=== PATIENT | male | born 1985 | race Caucasian/White ===

== ENCOUNTER 2016-09-13 16:22 | Emergency (ER) | payer MEDICAID ==
[~2016-09-13] VITALS: Ht 185.4 cm; Wt 154.5 kg
[~2016-09-13 16:22] MED LIST: ABILIFY 10MG TA10 MG PO; ADIPEX-P37.5 M1 PO; AMOXICILLIN 50500 MG PO; ANTIDEPRESSANT; CEFTIN500 MG PO; CELEXA40 MG PO; CHERATUSSIN AC120 ML PO; FIORICET 325 MG1 TA1 PO; FLEXERIL 1010 MG/TAB PO; FLEXERIL5 MG PO; IMITREX 5MGNAS NS; IMITREX50 MG PO; NORCO 325 MG-51 TAB PO; NORCO 325 MG-7.1 TAB PO; PERCOCET 325 MG1 TA2 PO; PHENERGAN 25 TA25 MG PO; PHENERGAN W/CO120 M1 PO; PREDNISONE10 MG PO; PREDNISONE20 MG PO; PROAIR HFA0.09 MG/AC IH; REGLAN 10MG10 MG/TAB PO; TUSS PO; VALIUM 2MG T2 MG/TAB PO; VENTOLIN0.09 MG IH; WELLBUTRIN SR100 M1 PO; ZITHROMAX 250M250 MG PO; ZITHROMAX TRI-500 MG PO
[2016-09-13 16:23] VITALS: TEMP 98.2
[2016-09-13 18:37] VITALS: BP 147/101; PULSE 112
== END 2016-09-13 18:39 | disposition home or self-care (01) ==
LOC: COL.ER 16:22
DX: S00.93XA Contusion of unspecified part of head, initial encounter (principal); W22.8XXA Striking against or struck by other objects, initial encounter; Y92.414 Local residential or business street as the place of occurrence of the external cause; Z98.2 Presence of cerebrospinal fluid drainage device; G91.9 Hydrocephalus, unspecified

== ENCOUNTER 2017-03-19 00:10 | Emergency (ER) | payer MEDICAID ==
[~2017-03-19] VITALS: Ht 185.4 cm; Wt 159.1 kg
[2017-03-19 00:11] VITALS: BP 132/79; TEMP 98.2
[2017-03-19] MEDS ORDERED: ROXICODONE15 MG PO (00:15)
[2017-03-19] MEDS ORDERED: PROZAC40 MG PO (00:16)
[2017-03-19] MEDS ORDERED: FLEXERIL 1010 MG/TAB PO (01:21)
[2017-03-19] MEDS ORDERED: CRUTCHES MC (01:21)
[2017-03-19 01:33] VITALS: PULSE 98
== END 2017-03-19 01:33 | disposition home or self-care (01) ==
LOC: COL.ER 00:10
DX: M54.5 Low back pain (principal); M25.562 Pain in left knee; E66.9 Obesity, unspecified; Z68.42 Body mass index [BMI] 45.0-49.9, adult; Z86.69 Personal history of other diseases of the nervous system and sense organs; Z98.2 Presence of cerebrospinal fluid drainage device